=== PATIENT | female | born 1965 | race Caucasian/White ===

== ENCOUNTER 2018-06-14 21:02 | Emergency (ER) | payer OTHER ==
[2018-06-14 21:51] LABS: #Basophils 0.1 thou/uL (0.0-0.2); #Eosinphils 0.2 thou/uL (0.0-0.7); #Lymphocytes 2.1 thou/uL (1.20-3.40); #Monocytes 0.5 thou/uL (0.11-0.59); #Neutrophils 4.1 thou/uL (1.40-6.50); %Basophils 1.2 % (0.0-1.0); %Eosinophils 3.5 % (0.0-10.0); %Lymphocytes 29.8 % (21.0-51.0); %Monocytes 7.6 % (0.0-10.0); %Neutrophils 57.9 % (42.0-75.0); Hemoglobin 11.7 g/dL (12.0-16.0); Mean Corpuscular HGB CONC 32.1 g/dL (32.0-36.0); Mean Corpuscular Hemoglobin 27.6 pg (27.0-31.0); Mean Corpuscular Volume 86.1 fL (78.0-98.0); Mean Platelet Volume 6.4 fL (7.4-10.4); Platelet Count 283 thou/uL (130-400); RBC Distribution Width 12.6 % (11.5-14.5); Red Blood Cell (RBC) Count 4.25 mill/uL (4.20-5.40)
[2018-06-14 22:09] LABS: ALT (SGPT) 35 U/L (8-55); AST (SGOT) 20 U/L (5-34); Albumin 3.1 g/dL (3.5-5.0); Alkaline Phosphatase 50 U/L (40-150); Anion Gap 13 mmol/L (10-20); BUN (Urea Nitrogen) 14 mg/dL (9.8-20.1); Bilirubin, Total 0.4 mg/dL (0.2-1.2); CK (CPK) 60 U/L (29-168); Calc. Creatinine Clearance 0 mL/min (70-130); Calcium 8.5 mg/dL (7.8-10.44); Carbon Dioxide 27 mmol/L (22-29); Chloride 101 mmol/L (98-107); Estimated GFR-MDRD 45; Globulin 2.5 g/dL (2.4-3.5); Glucose 104 mg/dL (70-105); Potassium 4.3 mmol/L (3.5-5.1); Protein, Total 5.6 g/dL (6.0-8.3); Sodium 137 mmol/L (136-145)
[2018-06-14 22:11] LABS: CKMB 1.2 ng/mL (0-6.6); Troponin I Less than 0.010 ng/mL (< 0.028)
[2018-06-14 22:12] LABS: Bilirubin Negative (Negative); Blood, Urine Negative (Negative); Clarity Clear (Clear); Glucose, Urine (Dipstick) Negative (Negative); Leukocyte Negative (Negative); Nitrite Negative (Negative); Protein, Urine (Dipstick) Negative (Neg-Trace); Specific Gravity, Urine 1.025 (1.005-1.030); Urobilinogen 0.2 mg/dL (0.2-1.0); pH, Urine 5.5 (5.0-9.0)
--- NOTE | 2018-06-14 22:29 | RAD ---
PORTABLE UPRIGHT FRONTAL CHEST RADIOGRAPH: 06/14/2018 HISTORY: Pain. COMPARISON: 06/15/2014 FINDINGS: Heart and mediastinal contour are stable. Lungs are clear. IMPRESSION: No acute findings. POS: [facility]
== END 2018-06-14 23:52 | disposition home or self-care (01) ==
LOC: SCSER 21:02
DX: E86.0 Dehydration (principal); D50.9 Iron deficiency anemia, unspecified; I10 Essential (primary) hypertension; Z79.899 Other long term (current) drug therapy; Z79.82 Long term (current) use of aspirin
CPT/HCPCS: 71045; 80053; 81003; 82550; 82553; 83880; 84484; 85025; 93005; 96360; 96361

== ENCOUNTER 2019-07-29 08:11 | Outpatient (CLI) | payer OTHER ==
--- NOTE | 2019-07-29 13:13 | MRI ---
MRI brain with and without contrast: DATE: 07/29/2019 HISTORY: 54-year-old female with fatigue and right hand weakness. TECHNIQUE: Multiplanar, multisequence MRI of the brain obtained pre and post IV injection of gadolinium based co ntrast agent. FINDINGS: There is no obstructive hydrocephalus. There is no midline shift or any other evidence of mass effect . There is no extra-axial fluid collection. There are mild-moderate chronic ischemic white matter changes in the cerebrum due to microvascular atherosclerosis. There is otherwise no major intra-axial signal abnormality, abnormal enhancement, mass, recent hemorrhage, or restricted diffusion. IMPRESSION: 1) mild-moderate chronic ischemic white matter changes. 2) otherwise negative
== END 2019-07-29 08:12 | disposition home or self-care (01) ==
LOC: SCSMRI 08:11
PROVIDERS: ATTEND Psychiatry & Neurology Neurology
DX: R53.83 Other fatigue (principal); I67.82 Cerebral ischemia
CPT/HCPCS: 70553

== ENCOUNTER 2020-01-03 03:27 | Outpatient (CLI) | payer OTHER ==
[2020-01-04 13:58] LABS: SARS-CoV-2 MS2 Positive; SARS-CoV-2 N Gene Negative; SARS-CoV-2 S Gene Negative; SARS-CoV-2 orf1ab Negative
== END 2020-01-03 03:28 | disposition home or self-care (01) ==
LOC: ERS 03:27
PROVIDERS: ATTEND Internal Medicine Gastroenterology
DX: Z11.59 Encounter for screening for other viral diseases (principal); R11.0 Nausea; Z98.84 Bariatric surgery status
CPT/HCPCS: 87635; U0003

== ENCOUNTER 2020-01-06 10:55 | Outpatient (CLI) | payer OTHER ==
[2020-01-06] MEDS ORDERED: MD-Gastroview 120 ML BOT ONE (13:22)
--- NOTE | 2020-01-06 14:14 | RAD ---
Exam: Gastrografin upper GI and small bowel follow-through HISTORY: Nausea. Bariatric surgery FINDINGS: Patient was administered Gastrografin which passes from a normal caliber esophagus into the residual stomach. There is no delay in passage of contrast. No leak or extravasation. Contrast opacifies multiple proximal small bowel loops. Gastrografin small bowel follow-through was performed. Contrast opacifies multiple normal caliber sma ll bowel loops. No evidence of high-grade bowel obstruction. Contrast opacifies the colon on the one hour and 15 minute image IMPRESSION: No abnormalities with regards to the esophagus, gastric remnant or small bowel. No eviden ce of obstruction. No leak or extravasation.
== END 2020-01-06 10:56 | disposition home or self-care (01) ==
LOC: RAD 10:55
PROVIDERS: ATTEND Internal Medicine Gastroenterology
DX: R11.0 Nausea (principal); Z98.84 Bariatric surgery status
CPT/HCPCS: 74240; Q9963